=== PATIENT | female | born 1945 ===

== ENCOUNTER 2024-03-10 08:48 | Outpatient (NON) | payer MEDICARE, BC, SELFPAY ==
[2024-03-17 20:09] LABS: Calprotectin, Stool 31 mcg/g
[2024-03-18 05:26] LABS: Pancreatic Elastase, Stool >500 mcg/g
== END 2024-03-10 08:49 | disposition home or self-care (01) ==
LOC: ANHLAB 08:49
PROVIDERS: PCP Internal Medicine; Visit Provider Nurse Practitioner Family
DX: K52.9 Noninfective gastroenteritis and colitis, unspecified (principal)
CPT/HCPCS: 82653; 83993

== ENCOUNTER → 2025-02-22 12:19 | Outpatient (REF) | payer MEDICARE, SELFPAY ==
--- OUTSIDE RECORDS SUMMARY | 2025-02-13 03:06 | XMS_ITS | Continuity of Care Document ---
Author Organization [facility] Address [address] [place] [phone] Phone Care Team Providers Care Mechanical Fitter Name Role Phone Vitaliy TEAGUE, FACC, SEUN, Parish Unavailable U navailable Medications Medication Instructions Dosage Effective Dates (start - stop) Status Comments cholestyramine (with sugar) 4 gram powder for susp in a packet - Active ezetimibe 10 mg tablet - Act ellis amlodipine 5 mg tablet - Act ellis dicyclomine 10 mg capsule - Active losartan 50 mg tablet - Acti ve tramadol 50 mg tablet - Acti ve quetiapine 100 mg tablet - A ctive hydroxychloroquine 200 mg tablet - Active metoprolol tartrate 50 mg tablet - Active azathioprine 50 mg tablet - Active simvastatin 20 mg tablet - A ctive Breyna 160 mcg-4.5 mcg/actuation HFA aerosol inhaler - Active Advance Directives Directive Yes / No Effective Date File Name No Information Encounters Encounter Description Practice Location Reason(s) For Visit Diagnoses Date Provider Providers Copied on Encounter [facility], [address] [place] [address], [id number], tel:[phone] [facility] No Information Vitaliy Lugo. [address] [place] [address], [id number], . tel:[phone] Family History Family Member Type Diagnosis Age At Onset No Information Payers Payer name Insurance type Covered democrat ID Authoriza tion(s) No Information Social History Type Description Quantity Date Captured Comments Sex Female Smoking Status No Information Chief Complaint And Reason For Visit No Information Reason For Referral Reason For Referral No Information Plan Of Treatment Date Type Action Status Appointment Savita Howard History Of Present Illness Encounter Date Complaint History Of Prese nt Illness No Information Functional Status Date Functional Assessmen t No Information Instructions Date Instruction Additional Infor mation No Information Assessments Type Assessment Date No Information Patient Care Teams Name Effective Dates (start - stop) Status Members No Information
--- NOTE | 2025-02-22 12:19 | S_PTH ---
PATIENT: Savita Howard LOC: [facility] U#:[id number] AGE/SX: 79/F ROOM: RE02/22/[address]: Viral Segura MD : 1945 BED: DIS: SPEC #: [id number] RECD: 02/22/25 12:50 STATUS: REBA REJennifer #: [id number] RENATA: 02/22/25 12:[address]: Viral Segura DEPT: [facility] Surgical RECD BY: Chantelle Valencia ENTERED: 02/22/25 12:50 SP TYPE: Surgical OTHR DR: Imtiaz PalaciosMD Tissues: A - Skin Procedures: Hematoxylin and Eosin Stain Gross and Microscopic Level 4
--- OUTSIDE RECORDS SUMMARY | 2025-02-22 13:39 | XMS_ITS | Clinical Summary ---
Author Organization [facility] [employer] [facility] , [facility] Address [address] [facility] [facility] [address] [place] [address] Phone Care Team Providers Care Assistant Hall Director Name Role Phone Imtiaz Palacios MD Primary Care Provider [phone] Medications aspirin (ST JUDITH) 81 MG EC tablet aspirin 81 mg tablet,delayed release Take 1 tablet every day by oral route. 03/02/20 20 Active ezetimibe (ZETIA) 10 MG tablet 02/05/20 21 Active cloNIDine (CATAPRES) 0.1 MG tablet clonidine HCl 0.1 mg tablet 12/01/19 20 Active hydrALAZINE 50 MG tablet hydralazine 50 mg tablet Active hydroxychloroq uine (PLAQUENIL) 200 MG tablet hydroxychloroquine 200 mg tablet 06/22/18 70 Active amLODIPine (NORVASC) 5 MG tablet TAKE 1 TABLET(5 MG) BY MOUTH EVERY NIGHT 90 tablet 1 12/02/19 25 Active losartan (COZAAR) 50 MG tablet TAKE 1 TABLET(50 MG) BY MOUTH EVERY NIGHT 90 tablet 1 12/02/19 25 Active Encounters Date Type Department Care Team Description 01/05/2025 Documentation Only [facility], [address] [address] Jamar Menchaca DO 12/01/2024 Refill [facility], [address] [address] Jamar Menchaca DO from Last 3 Months Social History Tobacco Use Types Packs/Day Years Used Date Smoking Tobacco: Never Assessed Comments Unknown Sex and Gender Information Value Date Recorded Sex Assigned at Not on file Legal Sex Female 2:52 PM EDT Gender Identity Not on file Sexual Orientation Not on file Last Filed Vital Signs Vital Sign Reading Time Taken Comments Blood Pressure 140/80 04/12/2024 2:50 PM CDT Pulse 67 04/12/2024 2:50 PM CDT Temperature 36.7 C (98 F) 04/12/2024 2:50 PM CDT Respiratory Rate 18 04/12/2024 2:50 PM CDT Oxygen Saturation 97% 04/12/2024 2:50 PM CDT Inhaled Oxygen Concentration - - Weight 86.9 kg (191 lb 9.6 oz) 04/12/2024 2:50 P M CDT Height 160 cm (5' 3) 08/19/2022 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 Body Mass Index 33.94 08/19/2022 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 Plan of Treatment Upcoming Encounters Date Type Department Care Team (Late st Contact Info) Description 04/18/2025 1:00 PM CDT Office Visit [facility], [facility] [address] [facility] [address] [place] [address] Jamar Menchaca, [address] [place] [address] [address] [place] [address] Health Maintenance Due Date Last Done Comments Pneumococcal Vaccine: 50+ Years (2 of 2 - PCV) 04/10/2011 04/10/2010 Influenza Vaccine (#1) 2025 4, 05/03/2013, 04/10/2010 Hepatitis B Vaccine Aged Out No longe r eligible based on patient's age to complete this topic Insurance Medicare [facility] Care Teams Assistant Hall Director Relationship Specialty Start Date End Date Imtiaz Palacios MD [facility] [address] [place] [address] PCP - General Internal Medicine 03/05/21
--- OUTSIDE RECORDS SUMMARY | 2025-02-22 13:39 | XMS_ITS | Clinical Summary ---
Author Organization [facility] Address [address] [place] [address] Care Team Providers Care Wind Field Manager Name Role Phone Imtiaz Palacios MD Primary Care Provider [phone] Allergies Active Allergy Reactions Criticality Noted Date Comments Meperidine Hcl Hives 01/22/2023 Xevlpbd-Vytwae-Gydgdo Acid-Zno Unknown 01/22 Medications acetaminophen (TYLENOL) 500 MG tablet TK 2 TS PO TID Activ e amLODIPine (NORVASC) 5 MG tablet Take 1 tablet (5 mg total) by mouth daily. 2 Active aspirin EC (ECOTRIN) 81 MG tablet Take 1 tablet (81 mg total) by mouth daily. Active ezetimibe (ZETIA) 10 MG tablet Take 1 tablet (10 mg total) by mouth daily. 3 Active hydroxychloroqui ne (PLAQUENIL) 200 MG tablet Take 2 tablets (400 mg total) by mouth daily. Active metoprolol tartrate (LOPRESSOR) 50 MG tablet Active QUEtiapine (SEROQUEL) 100 MG tablet Active simvastatin (ZOCOR) 20 MG tablet Take 1 tablet (20 mg total) by mouth nightly at bedtime. Active traMADol (ULTRAM) 50 MG tablet TK 2 TS PO TID Activ e losartan (COZAAR) 50 MG tablet Take 1 tablet every day by oral route. 3 Active azaTHIOprine (IMURAN) 50 MG tablet Take 2 tablets (100 mg total) by mouth daily. Active calcium-vitamin D (OSCAL-D) 600-5 MG-MCG tablet Take 1 tablet by mouth 2 (two) times daily. Active IRON containing peds multivitamin (POLY--GERA/IRO N) 11 MG/ML solution Take 1 tablet by mouth daily. Active Tocilizumab (ACTEMRA IV) Active Fluticasone Furoate (ARNUITY ELLIPTA) 100 MCG/ACT AEROSOL POWDER, BREATH ACTIVATEDIndicat ions:Mild persistent asthma without complication (HHS/HCC) Inhale 1 puff into the lungs daily. 90 each 3 3 Active Additional Information Patient not taking.Reported on 09/30/2024 fluticasone propionate (FLOVENT HFA) 220 MCG/ACT inhalerIndicatio ns:Chronic obstructive pulmonary disease, unspecified COPD type (CMS/HCC HHS/HCC) Inhale 1 puff into the lungs 2 (two) times daily. 12 g 2 3 Active albuterol sulfate HFA 108 (90 Base) MCG/ACT inhalerIndicatio ns:Mild persistent asthma without complication (HHS/HCC) Inhale 2 puffs into the lungs every 4 (four) hours as needed. 8.5 g 3 3 Active JARDIANCE 10 MG tablet 4 Active budesonide-formo terol (BREYNA) 160-4.5 MCG/ACT inhalerIndicatio ns:Mild intermittent asthma without complication (HHS/HCC) INHALE 2 PUFFS INTO THE LUNGS EVERY 6 HOURS NEEDED FOR SHORTNESS OF BREATH OR COUGH OR WHEEZING. RINSE AND SPIT AFTER USE 10.3 g 3 5 Active Immunizations Immunization Administration Dates Next Due Influenza (Generic) 05/09/2014,05/03/2013,2009 MODERNA COVID-19 (12+) MRNA, LNP-S, PF, 100 MCG/ 0.5 ML DOSE 06/05/2021,05/29/2021,10/19/2020,2020 Pneumococcal (Pneumovax 23) 04/10/2010 Family History Medical History Relation Comments Heart Disease Father Heart Disease Mother Relation Status Comments Father Mother Social History Tobacco Use Types Packs/Day Years Used Date Smoking Tobacco: Never Smokeless Tobacco: Never Tobacco Cessation:Counseling Given: Yes Alcohol Use Standard Drinks/Week Comments Not Currently 0 (1 standard drink = 0.6 oz pur e alcohol) PHQ-2 Answer Date Recorded Patient Health Questionnaire-2 Score 0 09/29/2023 Comments Unknown Sex and Gender Information Value Date Recorded Sex Assigned at Not on file Legal Sex Female 12:29 PM CDT Gender Identity Not on file Sexual Orientation Not on file Last Filed Vital Signs Vital Sign Reading Time Taken Comments Blood Pressure 112/70 09/30/2024 10:37 AM CDT Pulse 69 09/30/2024 10:37 AM CDT Temperature 36.1 C (97 F) 09/30/2024 10:37 AM CDT Respiratory Rate 18 09/30/2024 10:37 AM CDT Oxygen Saturation 99% 09/30/2024 10:37 AM CDT RA Inhaled Oxygen Concentration - - Weight 86.6 kg (191 lb) 09/30/2024 10:37 AM CDT Height 160 cm (5' 3) 09/30/2024 10:37 AM CDT Body Mass Index 33.83 09/30/2024 10:37 AM CDT Plan of Treatment Upcoming Encounters Date Type Department Care Team (Late st Contact Info) Description 10/06/2025 11:00 AM CDT Office Visit [facility] - [facility] [address] [facility] [place] [id number] Carlos Messina MD [address] [facility] [address] [place] [address] Health Maintenance Due Date Last Done Comments Hepatitis C 1963 DTaP, Tdap and Td Vaccines (1 - Tdap) 1965 Zoster Vaccines (1 of 2) 1964 Pneumococcal Vaccine: 50+ Years (2 of 2 - PCV) 04/10/2011 04/10/2010 Annual Medicare Wellness Visit 10/29/2011 RSV Immunization or 60+ Years (1 - 1-dose 75+ series) 2021 COVID-19 Vaccine ( - season) 2024 04/23/2022, 06/05/2021, 05/29/2021, Additional history exists PHQ-2 (Physician [place]) 06/22/2024 09/29/2023 Dexa Scan (General) Completed 04/20/2014, 4 Meningococcal B Vaccine Aged Out No l onger eligible based on patient's age to complete this topic Meningococcal Vaccine Aged Out No elia prakash eligible based on patient's age to complete this topic RSV Immunizations Under 20 Months Aged Out No longer eligible based on patient's age to complete this topic Insurance [facility] MEDICARE Care Teams Wind Field Manager Relationship Specialty Start Date End Date Imtiaz Palacios MD PCP - General INTERNAL MEDICINE 01/22/23
--- OUTSIDE RECORDS SUMMARY | 2025-02-22 13:39 | XMS_ITS | Clinical Summary ---
Author Organization [facility] Address [address] [place] [phone] Care Team Providers Care Teacher Early Childhood Development Name Role Phone Imtiaz Palacios MD Primary Care Provider Allergies Active Allergy Reactions Criticality Noted Date Comments Amoxicillin-Pot Clavulanate Diarrhea High 09/27/19 21 Leflunomide Other (See comments) Low 09/26/2020 Meperidine Rash Medium 09/26/2020 Methotrexate Other (See comments) Low 09/26/2020 Montelukast Shortness of breath High 09/26/2020 Venlafaxine Other (See comments) Low 09/26/2020 Medications amLODIPine (NORVASC) 5 mg tablet 1 Active metoprolol tartrate (LOPRESSOR) 50 mg immediate release tablet 1 Active hydrOXYchloroQU INE (PLAQUENIL) 200 mg tablet 1 Active azaTHIOprine (IMURAN) 50 mg tablet 1 Active QUEtiapine (SEROquel) 100 mg tablet 1 Active simvastatin (ZOCOR) 20 mg tablet TAKE 1 TABLET BY MOUTH EVERY NIGHT AT BEDTIME Active traMADoL (ULTRAM) 50 mg tablet 1 Active ezetimibe (ZETIA) 10 mg tablet 1 Active aspirin 81 mg enteric coated tablet Take 1 tablet every day by oral route. Active fluticasone propionate (FLONASE) 50 mcg/actuation nasal spray 2 spray each nostril daily Active nitroglycerin (NITROSTAT) 0.4 mg SL tablet DIS 1 T UNT PRN. MAY REPEAT TWICE IN 10 MIN UTD Active pantoprazole DR (PROTONIX) 40 mg EC tablet TK 1 T PO QD Acti ve prednisoLONE acetate (PRED FORTE) 1 % ophthalmic suspension 1 Active acetaminophen (TYLENOL) 500 mg tablet TK 2 TS PO TID Activ e moxifloxacin (Vigamox) 0.5 % ophthalmic solution Active albuterol HFA (PROVENTIL HFA,VENTOLIN HFA,PROAIR HFA) 90 mcg/actuation inhaler Apply topically 0 Active traMADoL (ULTRAM) 50 mg tablet TAKE 2 TABLETS BY MOUTH THREE TIMES DAILY NEEDED. MUST LAST 30 DAYS 5 Active simvastatin (ZOCOR) 20 mg tablet Take 20 mg by mouth nightly 4 Active QUEtiapine (SEROquel) 100 mg tablet Take by mouth [address] (Protonix) 40 mg EC tablet PROTONIX TABLET DELAYED RELEASE 0 Active metoprolol tartrate (LOPRESSOR) 25 mg immediate release tablet Take 25 mg by mouth 2 (two) times a day Active hydrOXYchloroQU INE (PLAQUENIL) 200 mg tablet Take 400 mg by mouth daily 5 Active ezetimibe (ZETIA) 10 mg tablet Take 10 mg by mouth daily 4 Active azaTHIOprine (IMURAN) 50 mg tablet Take 100 mg by mouth daily 4 Active aspirin 81 mg enteric coated tablet Take 81 mg by mouth daily Active amLODIPine (NORVASC) 10 mg tablet 1 Active bumetanide (BUMEX) 0.5 mg tablet bumetanide 0.5 mg tablet 2 Active erythromycin (ILOTYCIN) ophthalmic ointment Apply to left eye nightly 3.5 g 3 2 Active Active Problems No known active problems Surgical History Surgery Date Site/Laterality Comments HYSTERECTOMY CHOLECYSTECTOMY REDUCTION MAMMAPLASTY Medical History Medical History Date Comments GERD (gastroesophageal reflux disease) Dysphagia Hypertension Coronary artery disease Chronic kidney disease Depression Arthritis Social History Tobacco Use Types Packs/Day Years Used Date Smoking Tobacco: Never Personal Safety Answer Date Recorded Getting School Help Needed Not on file 08/16 Comments Unknown Sex and Gender Information Value Date Recorded Sex Assigned at Not on file 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 Gender Identity Not on file Sexual Orientation Not on file Obstetrics History Last Filed Vital Signs Vital Sign Reading Time Taken Comments Blood Pressure 151/73 11/08/2020 7:52 AM CDT Pulse 88 11/08/2020 7:52 AM CDT Temperature - - Respiratory Rate 18 11/08/2020 7:52 AM CDT Oxygen Saturation - - Inhaled Oxygen Concentration - - Weight 67.1 kg (148 lb) 11/08/2020 7:52 AM CDT Height 160 cm (5' 3) 11/08/2020 7:52 AM CDT Body Mass Index 26.22 11/08/2020 7:52 AM CDT Plan of Treatment Not on file Insurance [facility] MEDICARE Care Teams Teacher Early Childhood Development Relationship Specialty Start Date End Date Imtiaz Palacios MD PCP - General 11/08/20
--- OUTSIDE RECORDS SUMMARY | 2025-02-22 13:39 | XMS_ITS | Clinical Summary ---
Author Organization [facility] Address [address] [place] [address] Care Team Providers Care Living Supervisor Name Role Phone Shaw Olvera MD [facility] Imtiaz Palaicos MD Primary Care Provider [phone] Source Comments [facility],non-owned Affiliates and Associated Physician Practices is amultiple site organization consisting of ambulatory clinics and hospital sitesin [place], [place], [place] and [place]. This disclosure is being madepursuant to the Care Everywhere program and may not contain all information available regarding this patient. Last updated 18.[facility] Allergies Active Allergy Reactions Criticality Noted Date Comments Leflunomide 08/14/2008 Muscle pain Augmentin Diarrhea High 10/05/2023 Propoxyphene N-Apap 07/22/2011 Meperidine 07/22/2011 Venlafaxine 09/05/2014 Elevated BP Methotrexate Hepatic Injury 08/24/2012 Mild reversible elevation of SGOT Petersons Unknown 01/22/2023 Medications * Be aware that medications may not be up to date on this document. Alwaysverify current medications with the patient. nefazodone (SERZONE) 200 MG tablet Take 200 mg by mouth 2 times daily Active aspirin 81 MG tablet Take 1 (one) tablet by mouth once daily Active Vitamin B12 100 MCG TABS Take 1,000 (one thousand) tablets by mouth once daily Active MULTIVITAMIN PO Take 1 Tab by mouth daily. Active Calcium-Vitami n D 600 MG TABS Take 1 Tab by mouth 2 times daily. Active acetaminophen (TYLENOL) 500 MG tabletIndicati ons:Chronic pain Take 2 Tabs by mouth 3 times daily. Maximum allowable Acetaminophen amount = 4 Grams / 24 hours. 1 Active fluticasone propionate (FLONASE) 50 MCG/ACT nasal sprayIndicatio ns:Allergic rhinitis Laurel 1 Laurel into each nostril once daily. 1 Bottle 12 3 Active Additional Information Patient taking differently:1 spray Each NostrilDAILY PRN, Reported on 10/05/2023 inFLIXimab (REMICADE) injection Pt to receive IV infusion Remicade 400mg/250cc 0.9%normal saline per Remicade protocol unless further orders received from Dr. Olvera. Order will in 1 year. 03/07/2014 3 Active Additional Information Patient not taking.Reported on 10/05/2023 ezetimibe (ZETIA) 10 MG tablet Take 1 (one) tablet by mouth once daily Active azaTHIOprine (IMURAN) 50 MG tabletIndicati ons:Rheumatoid arthritis(714. 0) ([facility]) Take 2 Tabs by mouth once daily. 60 Tab 5 4 Active predniSONE (DELTASONE) 20 MG tablet Take 1 tab at bedtime the night before infusion. Take 1 tab the morning of infusion. 30 Tab 1 4 Active Additional Information Patient not taking.Reported on 10/05/2023 hydroxychloroq uine (PLAQUENIL) 200 MG tabletIndicati ons:Rheumatoid arthritis(714. 0) (HCC) Take 2 Tabs by mouth once daily. 180 Tab 3 5 Active celecoxib (CELEBREX) 200 MG capsule Take 200 mg by mouth once daily Active traMADol (ULTRAM) 50 MG tablet TAKE 2 TABLETS BY MOUTH THREE TIMES DAILY NEEDED. MUST LAST 30 DAYS 180 Tab 3 5 Active metoprolol tartrate (LOPRESSOR) 25 MG tablet Take 1 (one) tablet by mouth 2 times daily Active simvastatin (ZOCOR) 20 MG tablet Take 1 (one) tablet by mouth at bedtime Every other night Active OXcarbazepine (TRILEPTAL) 150 MG tablet Take 150 mg by mouth 2 times daily Active cetirizine (ZYRTEC) 10 MG tablet Take 1 (one) tablet by mouth once daily as needed Active nitroGLYCERIN (NITROSTAT) 0.4 MG tablet Dissolve 1 (one) tablet under the tongue as needed for Angina Active albuterol HFA (Proventil; Ventolin; Proair) 108 (90 Base) MCG/ACT inhaler Inhale 2 (two) puffs by mouth every 4 hours as needed 3 Active amLODIPine (Norvasc) 5 MG tablet Take 1 (one) tablet by mouth at bedtime 4 Active Jardiance 10 MG tablet 4 Active losartan (Cozaar) 50 MG tablet at bedtime 3 Active QUEtiapine (SEROquel) 100 MG tablet 4 Active empagliflozin (Jardiance) 10 MG tablet 4 Active vitamin D (D-Vi-Katerine) 10 MCG (400 UNITS)/ML solution Active Active Problems Problem Noted Date Diagnosed Date CHF (congestive heart failure) 02/20/2015 High risk medications (not anticoagulants) long- term use 02/25/2011 Fibromyalgia 08/27/2010 Back pain 05/29/2009 Overview (05/29/2009): 05/29/2009 MRI and PT no benefit sees Dr Rell Epperson for injections Other specified rheumatoid arthritis, multiple s ites 08/14/2008 Overview (08/24/2012): Started on MTX Arava not tolerated PPD negative 11/27 Rapid3= 13.7 01/27 Remicade added 04/29 Rapid3= 8.9 05/16/08 SHEPHERD 2.13 indicating excellent response 11/21/2008 Rapid3 = 9 Methotrexate stopped due to hair loss, Remicade solo therapy. Added plaquenil today. 05/29/2009 Rapid3=15.3 having lots of back pain The RA control is good but she feels that addition of MTX and possible increase Remicade dose will help and I concur 02/26/2010 back pain is severe S0T0 Rapid3=12.7 08/27/2010 R3=13.3 generalized pain in the winter Check us hands today 08/24/2012 R3=12 off MTX still on Remicade and plaquenil will add azathioprine today OA (osteoarthritis) 08/14/2008 Chronic pain 08/14/2008 Alopecia 08/14/2008 Overview (11/21/2008): 11/21/2008 haifaustina de jesus off mtx Stomach pain 08/14/2008 Degenerative disc disease Overview (08/14/2008): Lumbar spine compatible with DISH. Immunizations Immunization Administration Dates Next Due INFLUENZA VACCINE, TRIV. 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 Gender Identity Not on file Sexual Orientation Not on file Last Filed Vital Signs Vital Sign Reading Time Taken Comments Blood Pressure 146/74 10/05/2023 4:43 PM CDT Pulse 62 10/05/2023 3:39 PM CDT Temperature 36.2 C (97.1 F) 10/05/2023 3:39 PM CDT Respiratory Rate 16 11/13/2015 9:41 AM CDT Oxygen Saturation 98% 10/05/2023 3:39 PM CDT Inhaled Oxygen Concentration - - Weight 85.2 kg (187 lb 12.8 oz) 10/05/2023 3:39 PM CDT Height 161.3 cm (5' 3.5) 10/05/2023 3:39 PM CDT Body Mass Index 32.75 10/05/2023 3:39 PM CDT Plan of Treatment Health Maintenance Due Date Last Done Comments MEDICARE AWV 12 MONTHS 1945 HEPATITIS C SCREENING 10/23/1964 DTAP/TDAP/TD VACCINES (1 - Tdap) 1965 ZOSTER VACCINE (1 of 2) 1965 PNEUMOCOCCAL VACCINE 50+ (2 of 2 - PCV) 04/10/2011 04/10/2010 Respiratory Syncytial Virus (RSV) Vaccine Pt: or over 60 yrs (1 - 1-dose 75+ series) 2021 DEPRESSION SCREENING 06/22/2024 07/31/2023 COVID-19 VACCINE (4 - 2024-2 6 season) 2025 05/29/2021, 10/19/2020, 09/21/2020 INFLUENZA VACCINE (#1) 2025 4, 05/03/2013, 04/10/2010 BONE DENSITY TESTING Completed 04/20/2014 HEPATITIS B VACCINE Aged Out No longe r eligible based on patient's age to complete this topic HIB VACCINE Aged Out No longer eligi ble based on patient's age to complete this topic HPV VACCINE Aged Out No longer eligi ble based on patient's age to complete this topic MENINGOCOCCAL (Group B) VACCINE SHARED DECISION-MAKING Aged Out No longer eligible based on patient's age to complete this topic MENINGOCOCCAL GROUPS A/C/Y/W VACCINE Aged Out No longer eligible b ased on patient's age to complete this topic Procedures Procedure Name Priority Date/Time Associated Diagnosis Comments DEXA BONE DENSITY RHEUMAT READ Routine 04/20/2014 10:32 AM CDT Osteopenia from Last 3 Months or Most Recently Relevant to Health Maintenance Results * DEXA BONE DENSITY RHEUMAT READ (04/20/2014 10:32 AM CDT) Anatomical Region Laterality Modality Mammography Narrative 04/21/2014 5:29 PM CDT Shaw Olvera MD 04/21/2014 5:29 PM [facility] DXA of spine and Hips To Foss is a 68 y.o. female : 1945 Date of scan 04/20/14 Note: Where comparable data is available the results have been compared with prior scanning. Issues of bone scan quality are addressed prior to data processing as able. Note that cases with degenerative arthritis of the spine or prior spine surgery or fracture can result in unpredictable effects on estimates of bone density. Results: Spine average density 1.212 gm/cm2___t-score 0.3 Femoral neck average density___ 0.917 gm/cm2___t-score -0.9 Total hip average density 0.987 gm/cm2___t-score -0.2 Fracture risk low IMP: Normal bone density, low risk for fracture Recommendation: Standard supplements and weight-bearing exercise, follow up bone density test in 5-10 years or sooner as clinically indicated Recommendations for treatment and follow up scanning are not intended to replace clinical judgement and are based on available data which may be incomplete and attempt to follow the 2008 NOF treatment guidelines. The NOF recommends treatment for patients with a t-score <-2.5 or -1.5 and below with 10 yr fracture risk greater than 20% for all fractures or greater than 3% for hip fractures based on FRAX calculation or a history of fragility fracture. Read by: Shaw Olvera MD Certified Clinical Geek Squad Manager Office: [phone] Call Directly: [phone] [facility] Address: [facility] Shaw Olvera MD DEXA ORDERABLES Final Result from Last 3 Months or Most Recently Relevant to Health Maintenance Insurance MEDICARE [employer] * Guarantor: [employer] Account Type Relation to Patient Date of Phone Billing Address Personal/Family 1945 [address] [place] [id number] Care Teams Living Supervisor Relationship Specialty Start Date End Date Imtiaz Palacios MD [address] [place] [id number] PCP - General 02/25/12 Shaw Olvera MD Rheumatology 04/28/11
--- OUTSIDE RECORDS SUMMARY | 2025-02-22 13:39 | XMS_ITS | Encounter Summary ---
Author Organization [facility] Address [address] [place], [place] [address] [place] [address] Phone Care Team Providers Care Diesel Powerplant Mechanic Name Role Phone Imtiaz Palacios MD Primary Care Provider [phone] Reason for Visit * Reason Comments Med Refill Encounter Details Date Type Department Care Team (Late st Contact Info) Description 02/17/2024 Refill [facility], [facility] [address] [facility] [address] [place] [address] Jamar Menchaca DO [address] [facility] [address] [place] [address] Social History Tobacco Use Types Packs/Day Years Used Date Smoking Tobacco: Never Assessed Comments Unknown Sex and Gender Information Value Date Recorded Sex Assigned at Not on file Legal Sex Female 2:52 PM EDT Gender Identity Not on file Sexual Orientation Not on file documented as of this encounter Plan of Treatment Upcoming Encounters Date Type Department Care Team (Late st Contact Info) Description 04/18/2025 1:00 PM CDT Office Visit [facility], [facility] [address] [place] [address] [address] [place] [address] Jamar Menchaca DO [address] [facility] [address] [place] [address] documented as of this encounter Visit Diagnoses Not on filedocumented in this encounter Care Teams Diesel Powerplant Mechanic Relationship Specialty Start Date End Date Imtiaz Palacios MD [facility] [address] [place] [address] PCP - General Internal Medicine 03/05/21 documented as of this encounter
--- OUTSIDE RECORDS SUMMARY | 2025-02-22 13:39 | XMS_ITS | Encounter Summary ---
Author Organization [facility] Address [address] [place], [place] [address] [place] [address] Phone Care Team Providers Care Can Closing Machine Operator Name Role Phone Imtiaz Palacios MD Primary Care Provider Reason for Visit * Reason Comments Med Refill Encounter Details Date Type Department Care Team (Late st Contact Info) Description 12/25/2020 Refill [place] [facility], [facility] [address] [place] [address] 1 [place] [address] Jamar Menchaca DO [address] [facility] [address] [place] [address] Social History Tobacco Use Types [...] Description 04/18/2025 1:00 PM CDT Office Visit [place] [facility], [facility] [address] [place] [address] [address] [place] [id number] Jamar Menchaca DO [address] [facility] [address] [place] [address] documented as of this encounter Visit Diagnoses Not on filedocumented in this encounter Care Teams Can Closing Machine Operator Relationship Specialty Start Date End Date Imtiaz Palacios MD [facility] [address] [place] [address] PCP - General Internal Medicine 03/05/21 documented as of this encounter
== END ==
LOC: ANHLAB 12:19
PROVIDERS: PCP Internal Medicine; Visit Provider Plastic Surgery
DX: D48.5 Neoplasm of uncertain behavior of skin (principal)
CPT/HCPCS: 88305